=== PATIENT | female | born 1990 | race Two or more races ===

== ENCOUNTER 2023-10-19 10:09 | Emergency (ER) | payer OTHER ==
[~2023-10-19] VITALS: Ht 160 cm; Wt 63.5 kg
== END 2023-10-19 12:51 | disposition home or self-care (01) ==
LOC: ER 10:09
DX: S62.635A Displaced fracture of distal phalanx of left ring finger, initial encounter for closed fracture (principal); Y93.68 Activity, volleyball (beach) (court); Y92.89 Other specified places as the place of occurrence of the external cause; Z91.018 Allergy to other foods